=== PATIENT | male | born 1960 | race Two or more races ===

== ENCOUNTER 2022-05-05 16:31 | Inpatient (IN) | payer MEDICAID, OTHER ==
[~2022-05-05] VITALS: Ht 180.3 cm; Wt 78.9 kg
[2022-05-05] MEDS ORDERED: HYDRALAZINE 20MG/ML VIAL IV ONE (17:00)
[2022-05-05] MEDS ORDERED: HYDRALAZINE 20MG/ML VIAL IV NR (17:30)
[2022-05-05 17:32] LABS: BASOPHILS % 1.9 % (0.0-2.0); EOSINOPHILS % 11.4 % (0.0-5.0); HEMOGLOBIN. 9.9 g/dL (14.0-18.0); LYMPHOCYTES % 21.6 % (20.0-50.0); MEAN CORPUSCULAR HEMOGLOBIN 28.7 pg (28.0-32.0); MEAN CORPUSCULAR VOLUME 84.5 fL (80.0-94.0); MEAN PLATELET VOLUME 10.2 fl (7.4-10.4); MONOCYTES % 6.7 % (2.0-8.0); NEUTROPHILS % 58.4 % (40.0-76.0); PLATELET 148 x1000/uL (130-400); RED BLOOD CELL COUNT 3.43 mill/uL (4.7-6.1); RED CELL DISTRIBUTION WIDTH 15.1 % (11.6-14.6)
[2022-05-05 17:37] LABS: CHLORIDE 111 mEq/L (98-107)
[2022-05-05 17:42] LABS: PROTHROMBIN TIME 10.6 sec (9.6-11.0)
[2022-05-05 17:48] LABS: HDL CHOLESTEROL 47 mg/dL (40-59); LDL CHOLESTEROL 102 mg/dL (5-100)
[2022-05-05] MEDS ORDERED: INSULIN REGULAR (HUMULIN R) 300UNITS/3ML VIAL IV NR (18:45)
[2022-05-05] MEDS ORDERED: SODIUM BICARBONATE 8.4% 1 MEQ/ML 50ML SYR IV NR (18:45)
[2022-05-05] MEDS ORDERED: ALBUTEROL (0.083%) 2.5MG/3ML NEB HHN NR (18:45)
[2022-05-05] MEDS ORDERED: DEXTROSE 50% WATER 50ML SYRINGE IV NR (18:45)
[2022-05-06 06:16] VITALS: BP 138/66
[2022-05-06 08:00] VITALS: BP 167/73
[2022-05-06] MEDS ORDERED: ONDANSETRON HCL 4MG/2ML INJ IV PRN (08:45)
[2022-05-06] MEDS ORDERED: DEXTROSE 50% WATER 50ML SYRINGE IV PRN (09:00)
[2022-05-06] MEDS: ASPIRIN 81MG TABLET PO SCH (09:36)
[2022-05-06] MEDS: ENOXAPARIN 30MG/0.3ML SYR SUBCUT SCH (09:37)
[2022-05-06 10:39] LABS: BASOPHILS % 1.3 % (0.0-2.0); EOSINOPHILS % 10.4 % (0.0-5.0); HEMATOCRIT. 29.1 % (42.0-52.0); HEMOGLOBIN. 9.7 g/dL (14.0-18.0); LYMPHOCYTES % 19.1 % (20.0-50.0); MEAN CORPUSCULAR HEMOGLOBIN 28.6 pg (28.0-32.0); MEAN CORPUSCULAR VOLUME 85.8 fL (80.0-94.0); MEAN PLATELET VOLUME 10.7 fl (7.4-10.4); MONOCYTES % 5.2 % (2.0-8.0); PLATELET 149 x1000/uL (130-400)
[2022-05-06 12:00] VITALS: BP 177/77
[2022-05-06] MEDS: BLOOD SUGAR DIAGNOSTIC STRIP TEST SCH ×3 (12:08→21:19)
[2022-05-06] MEDS: INSULIN LISPRO 100 UNITS/ML SUBCUT SCH ×3 (14:18→21:00)
[2022-05-06] MEDS ORDERED: LIP40 MT (15:41)
[2022-05-06] MEDS ORDERED: AMLO10TA80 MT (15:41)
[2022-05-06] MEDS ORDERED: LIP40 PO (15:41)
[2022-05-06] MEDS: AMLODIPINE 10MG TABLET PO SCH (15:57)
[2022-05-06 16:00] VITALS: BP 177/71
[2022-05-06 18:20] LABS: CREATINE KINASE 151 IU/L (39-308)
[2022-05-06] MEDS: HYDRALAZINE HCL 100MG TABLET PO SCH (18:22)
[2022-05-06] MEDS ORDERED: HYDR100T26 MT (18:46)
[2022-05-06] MEDS: DEXTROSE 5% WATER 1,000 ML IV SCH (19:25)
[2022-05-06 20:00] VITALS: BP 146/62
[2022-05-06] MEDS ORDERED: ATORVASTATIN CALCIUM 40MG TABLET PO SCH (21:00)
[2022-05-07] VITALS: BP 107/53
[2022-05-07] MEDS: DEXTROSE 5% WATER 1,000 ML IV SCH (03:50)
[2022-05-07 06:21] VITALS: BP_SYST 124; BP_DIAS 53; BP_DIAS 63
[2022-05-07] MEDS: BLOOD SUGAR DIAGNOSTIC STRIP TEST SCH ×2 (06:23→12:51)
[2022-05-07] MEDS: HYDRALAZINE HCL 100MG TABLET PO SCH (06:35)
[2022-05-07] MEDS: INSULIN LISPRO 100 UNITS/ML SUBCUT SCH ×2 (07:43→12:50)
[2022-05-07 08:35] VITALS: BP 129/49
[2022-05-07] MEDS: ASPIRIN 81MG TABLET PO SCH (08:43)
[2022-05-07] MEDS: ENOXAPARIN 30MG/0.3ML SYR SUBCUT SCH (08:43)
[2022-05-07] MEDS: AMLODIPINE 10MG TABLET PO SCH (08:43)
[2022-05-07 10:07] LABS: *AMPHETAMINES SCREEN URINE NEGATIVE (NEGATIVE); *BARBITURATES SCREEN URINE NEGATIVE (NEGATIVE); *BENZODIAZEPINES SCREEN URINE NEGATIVE (NEGATIVE); *COCAINE SCREEN URINE NEGATIVE (NEGATIVE); CANNABINOID URINE SCREEN NEGATIVE (NEGATIVE); METHADONE URINE SCREEN NEGATIVE (NEGATIVE); OPIATES URINE SCREEN NEGATIVE (NEGATIVE); PHENCYCLIDINE URINE SCREEN NEGATIVE (NEGATIVE)
[2022-05-07 10:46] LABS: BASOPHILS % 1.3 % (0.0-2.0); HEMATOCRIT. 29.7 % (42.0-52.0); LYMPHOCYTES % 18.6 % (20.0-50.0); MEAN CORPUSCULAR HEMOGLOBIN 28.6 pg (28.0-32.0); MEAN CORPUSCULAR VOLUME 84.6 fL (80.0-94.0); MEAN PLATELET VOLUME 10.9 fl (7.4-10.4); MONOCYTES % 5.4 % (2.0-8.0); NEUTROPHILS % 65.7 % (40.0-76.0); PLATELET 158 x1000/uL (130-400); RED BLOOD CELL COUNT 3.51 mill/uL (4.7-6.1); RED CELL DISTRIBUTION WIDTH 15.4 % (11.6-14.6)
[2022-05-07 12:45] VITALS: BP 115/50
[2022-05-07 12:52] VITALS: BP 115/50
== END 2022-05-07 14:41 | disposition home or self-care (01) | DRG 199 ==
LOC: ER 16:31 → EDBEDREQ 18:38 → MICUSO 20:40 → EDBEDREQ 20:46 → EDBEDREQTM 20:46 → 6WST 05-06 06:06
PROVIDERS: ADMIT Internal Medicine; ATTEND Internal Medicine
DX: I16.1 Hypertensive emergency (principal); N17.0 Acute kidney failure with tubular necrosis; G45.9 Transient cerebral ischemic attack, unspecified; D64.9 Anemia, unspecified; E87.5 Hyperkalemia; E11.9 Type 2 diabetes mellitus without complications; E87.8 Other disorders of electrolyte and fluid balance, not elsewhere classified; I10 Essential (primary) hypertension; Z86.73 Personal history of transient ischemic attack (TIA), and cerebral infarction without residual deficits
CPT/HCPCS: 36415; 70551; 76770; 80048; 80053; 80061; 80305; 82550; 82962; 83036; 84484; 85025; 93005; 94640; 97116; 97162; 99285; J0360; J1650; J1815; J3490; J7070

== ENCOUNTER 2025-07-04 17:21 | Inpatient (IN) | payer MEDICARE, MEDICAID ==
[~2025-07-04] VITALS: Ht 162.6 cm; Wt 77.1 kg
[~2025-07-04 17:21] MED LIST: AMLO5TAB88 PO; HYDR100T11 MT; HYDR100T11 PO; LIP40 MT; LIP40 PO
[2025-07-04 17:23] VITALS: O2SAT 100
[2025-07-04 18:08] LABS: HEMATOCRIT. 31.2 % (42.0-52.0); HEMOGLOBIN. 10.7 g/dL (14.0-18.0); MEAN PLATELET VOLUME 10.9 fl (7.4-10.4); PLATELET 139 x1000/uL (130-400); RED BLOOD CELL COUNT 3.57 mill/uL (4.7-6.1); RED CELL DISTRIBUTION WIDTH 16.0 % (11.6-14.6)
[2025-07-04 18:14] LABS: UREA NITROGEN BLOOD 29 mg/dL (9-23)
[2025-07-04 18:16] LABS: ETHANOL BLOOD < 10 mg/dL (<10); PROTEIN TOTAL 7.4 g/dL (6.0-8.3)
[2025-07-04 18:17] LABS: ASPARTATE AMINOTRANSFERASE 32 IU/L (<34); BILIRUBIN DIRECT 0.1 mg/dL (<=3.0); TROPONIN I HIGH SENSITIVITY 37 ng/L (3.0-53)
[2025-07-04 18:18] LABS: BILIRUBIN TOTAL 0.4 mg/dL (0.1-1.0)
[2025-07-04 18:33] LABS: CREATININE 5.0 mg/dL (0.6-1.3)
[2025-07-04 18:34] LABS: EOSINOPHILS % MANUAL 1.0 % (0.0-5.0); LYMPHOCYTES % MANUAL 9.0 % (20.0-50.0); MONOCYTES % MANUAL 4.0 % (2.0-8.0); NEUTROPHILS % MANUAL 86.0 % (45.0-75.0); PLATELET ESTIMATE NORMAL
[2025-07-04 18:54] LABS: INR 1.0
[2025-07-04] MEDS ORDERED: MORPHINE SULFATE 2 MG/ML INJ (NOT FOR IM USE) IV PRN (22:45)
[2025-07-04] MEDS ORDERED: ZOLPIDEM TARTRATE 5MG TABLET PO PRN (22:45)
[2025-07-04] MEDS ORDERED: ONDANSETRON HCL 4MG/2ML INJ IV PRN (22:45)
[2025-07-04] MEDS ORDERED: HYDROCODONE/ACETAMINOPHEN 5/325MG TABLET PO PRN (22:45)
[2025-07-04] MEDS ORDERED: DEXTROSE 50% WATER 50ML SYRINGE IV PRN (22:45)
[2025-07-04] MEDS ORDERED: MAGNESIUM/ALUMINUM HYDROXIDE/SIMETHICONE 30ML UDC PO PRN (22:45)
[2025-07-04] MEDS: CLONIDINE 0.1MG TABLET PO PRN (23:29)
[2025-07-04] MEDS: IOHEXOL-350 100 ML BOTTLE ONE (23:42)
[2025-07-05] VITALS (8 sets, daily range): BP systolic 161–198; BP diastolic 66–88; PULSE 58–65; RESP 16–20; TEMP 36.4–37.4; O2SAT 97–99
[2025-07-05] MEDS: HYDRALAZINE HCL 100MG TABLET PO SCH (05:09)
[2025-07-05 07:22] LABS: BASOPHILS % 1.3 % (0.0-2.0); EOSINOPHILS % 2.4 % (0.0-5.0); HEMATOCRIT. 30.7 % (42.0-52.0); HEMOGLOBIN. 10.2 g/dL (14.0-18.0); LYMPHOCYTES % 13.0 % (20.0-50.0); MEAN PLATELET VOLUME 10.9 fl (7.4-10.4); MONOCYTES % 7.5 % (2.0-8.0); NEUTROPHILS % 75.8 % (40.0-76.0); PLATELET 121 x1000/uL (130-400); RED BLOOD CELL COUNT 3.52 mill/uL (4.7-6.1); RED CELL DISTRIBUTION WIDTH 16.1 % (11.6-14.6)
[2025-07-05 07:41] LABS: TRIGLYCERIDE 106.0 mg/dL (0-150)
[2025-07-05 07:42] LABS: LDL CHOLESTEROL 77.0 mg/dL (5-100)
[2025-07-05] MEDS: BLOOD SUGAR DIAGNOSTIC STRIP TEST SCH (07:53)
[2025-07-05] MEDS: INSULIN LISPRO 100 UNITS/ML SUBCUT SCH (07:54)
[2025-07-05 07:56] LABS: TROPONIN I HIGH SENSITIVITY 979 ng/L (3.0-53)
[2025-07-05 08:03] LABS: CREATININE 6.6 mg/dL (0.6-1.3)
[2025-07-05 08:04] LABS: UREA NITROGEN BLOOD 34.0 mg/dL (9-23)
[2025-07-05] MEDS: AMLODIPINE 5MG TABLET PO SCH (08:30)
[2025-07-05] MEDS: PANTOPRAZOLE SODIUM 40 MG/VIAL IV SCH (08:30)
[2025-07-05] MEDS: ENOXAPARIN 30MG/0.3ML SYR SUBCUT SCH (08:30)
[2025-07-05] MEDS: ASPIRIN 81MG TABLET PO SCH (08:30)
[2025-07-05] MEDS: HYDRALAZINE 20MG/ML VIAL IV PRN (11:23)
[2025-07-05] MEDS: CLOPIDOGREL 75MG TABLET PO SCH (18:07)
[2025-07-05] MEDS ORDERED: ATORVASTATIN CALCIUM 40MG TABLET PO SCH (21:00)
[2025-07-05] MEDS: ATORVASTATIN CALCIUM 40MG TABLET PO SCH (22:02)
[2025-07-05 22:25] LABS: TROPONIN I HIGH SENSITIVITY 620 ng/L (3.0-53)
[2025-07-06] VITALS (15 sets, daily range): BP systolic 158–219; BP diastolic 59–94; PULSE 45–65; RESP 17–48; TEMP 36.2–36.5; O2SAT 97–100
[2025-07-06] MEDS: CLONIDINE 0.1MG TABLET PO SCH (00:22)
[2025-07-06 07:44] LABS: TRIGLYCERIDE 86.0 mg/dL (0-150)
[2025-07-06 07:45] LABS: LDL CHOLESTEROL 82.0 mg/dL (5-100)
[2025-07-06 07:50] LABS: UREA NITROGEN BLOOD 48.0 mg/dL (9-23)
[2025-07-06 07:52] LABS: BASOPHILS % 1.6 % (0.0-2.0); EOSINOPHILS % 5.8 % (0.0-5.0); HEMATOCRIT. 30.9 % (42.0-52.0); HEMOGLOBIN. 10.4 g/dL (14.0-18.0); LYMPHOCYTES % 19.6 % (20.0-50.0); MEAN PLATELET VOLUME 11.4 fl (7.4-10.4); MONOCYTES % 10.3 % (2.0-8.0); NEUTROPHILS % 62.7 % (40.0-76.0); PLATELET 134 x1000/uL (130-400); RED BLOOD CELL COUNT 3.53 mill/uL (4.7-6.1); RED CELL DISTRIBUTION WIDTH 16.1 % (11.6-14.6)
[2025-07-06 08:02] LABS: CREATININE 8.2 mg/dL (0.6-1.3)
[2025-07-06 08:58] LABS: CLARITY URINE CLEAR (CLEAR); COLOR URINE YELLOW (YELLOW); GLUCOSE URINE 1+ (NEGATIVE); KETONES URINE NEGATIVE (NEGATIVE); LEUKOCYTE ESTERASE URINE TRACE (NEGATIVE); NITRITE URINE NEGATIVE (NEGATIVE); OCCULT BLOOD URINE 2+ (NEGATIVE); PH URINE 8.5 (4.5-8.0); PROTEIN URINE 4+ (NEGATIVE); SPECIFIC GRAVITY URINE 1.018 (1.005-1.030); UROBILINOGEN URINE 0.2 E.U./dL (0.2-1.0)
[2025-07-06] MEDS ORDERED: ASPIRIN 81MG EC TABLET PO SCH (09:00)
[2025-07-06 09:52] LABS: BACTERIA URINE NONE SEEN; HYALINE CASTS URINE 0-5 /lpf; RBC URINE TNTC /hpf (0-2); SQUAMOUS EPITHELIAL CELL URINE RARE /lpf (RARE/1+); WBC URINE NONE SEEN /hpf (0-2)
[2025-07-06] MEDS: CLONIDINE 0.2MG TABLET PO SCH (12:38)
[2025-07-06] MEDS: NIFEDIPINE XL 60MG TAB PO SCH (16:03)
[2025-07-06 20:00] LABS: HEPATITIS A AB IGM NEGATIVE (Negative); HEPATITIS B CORE AB IGM NEGATIVE (Negative)
[2025-07-06 20:01] LABS: HEPATITIS C AB NON REACTIVE (Neg) (Negative)
[2025-07-06] MEDS: ACETAMINOPHEN 325MG TABLET PO PRN (20:05)
[2025-07-06] MEDS: DOXAZOSIN MESYLATE 2MG TABLET PO SCH (21:57)
[2025-07-07] VITALS: BP 146/57; PULSE 55; RESP 19; TEMP 36.8; O2SAT 100
[2025-07-07 04:00] VITALS: BP 159/57; PULSE 60; RESP 20; TEMP 36.2; O2SAT 99
[2025-07-07 07:49] LABS: BASOPHILS % 1.8 % (0.0-2.0); EOSINOPHILS % 4.8 % (0.0-5.0); HEMATOCRIT. 32.9 % (42.0-52.0); HEMOGLOBIN. 10.9 g/dL (14.0-18.0); LYMPHOCYTES % 11.4 % (20.0-50.0); MEAN PLATELET VOLUME 11.1 fl (7.4-10.4); MONOCYTES % 11.5 % (2.0-8.0); NEUTROPHILS % 70.5 % (40.0-76.0); PLATELET 151 x1000/uL (130-400); RED BLOOD CELL COUNT 3.73 mill/uL (4.7-6.1); RED CELL DISTRIBUTION WIDTH 16.5 % (11.6-14.6)
[2025-07-07 08:00] VITALS: BP 160/61; PULSE 61; RESP 20; TEMP 36.7; O2SAT 97
[2025-07-07 08:30] LABS: UREA NITROGEN BLOOD 35.0 mg/dL (9-23)
[2025-07-07 08:56] LABS: CREATININE 7.2 mg/dL (0.6-1.3)
[2025-07-07 12:00] VITALS: BP 166/64; PULSE 60; RESP 20; TEMP 37.1; O2SAT 95
[2025-07-07] MEDS ORDERED: NALOXONE HCL 0.4MG/ML VIAL IV PRN (12:00)
[2025-07-07] MEDS ORDERED: CLON0.2T PO (12:30)
[2025-07-07] MEDS ORDERED: ASPI-1160 PO (12:30)
[2025-07-07] MEDS ORDERED: LIP40 PO (12:30)
[2025-07-07] MEDS ORDERED: DOXA-14 PO (12:30)
[2025-07-07] MEDS ORDERED: CLOP-31 PO (12:30)
[2025-07-07] MEDS ORDERED: HYDR100T11 PO (12:30)
[2025-07-07 15:04] VITALS: BP 142/55; PULSE 60; RESP 20; TEMP 98.1
[2025-07-07] MEDS ORDERED: DOXAZOSIN MESYLATE 2MG TABLET PO SCH (21:00)
== END 2025-07-07 18:52 | disposition home or self-care (01) | DRG 64 ==
LOC: ER 17:21 → EDBEDREQ 20:51 → EDBEDREQTM 20:51 → ENRESERV 21:32 → 7WST 22:09
PROVIDERS: ADMIT Internal Medicine; ATTEND Internal Medicine
PROC: 5A1D70Z Performance of Urinary Filtration, Intermittent, Less than 6 Hours Per Day (ICD-10-PCS; principal; 2025-07-06)
DX: I63.89 Other cerebral infarction (principal); I21.4 Non-ST elevation (NSTEMI) myocardial infarction; N18.6 End stage renal disease; I13.2 Hypertensive heart and chronic kidney disease with heart failure and with stage 5 chronic kidney disease, or end stage renal disease; D61.818 Other pancytopenia; I16.1 Hypertensive emergency; Z99.2 Dependence on renal dialysis; E11.22 Type 2 diabetes mellitus with diabetic chronic kidney disease; I50.9 Heart failure, unspecified; R47.1 Dysarthria and anarthria; R47.01 Aphasia; E78.5 Hyperlipidemia, unspecified; Z87.891 Personal history of nicotine dependence
CPT/HCPCS: 36415; 70496; 70498; 70551; 71045; 80048; 80061; 80076; 80320; 81003; 82962; 83036; 83735; 83880; 84443; 84484; 85025; 86705; 86709; 87340; 90935; 92610; 93005; 93306; 93970; 97162; 97166; 99285; J0360; J1650; J1815; J2470; Q9967; G0480